=== PATIENT | male | born 1965 | race Caucasian/White ===

== ENCOUNTER 2020-03-16 07:08 | Emergency (ER) | payer MEDICAID ==
[~2020-03-16] VITALS: Ht 175.3 cm; Wt 109.0 kg
[2020-03-16] MEDS ORDERED: PREDNISONE 20MG TABLET PO ONE (09:00)
[2020-03-16 09:16] VITALS: BP 157/91
== END 2020-03-16 09:20 | disposition home or self-care (01) ==
LOC: ER 07:08
DX: M1A.9XX0 Chronic gout, unspecified, without tophus (tophi) (principal); I10 Essential (primary) hypertension
CPT/HCPCS: 99283; J7512